=== PATIENT | male | born 1950 | race Caucasian/White ===

== ENCOUNTER 2022-05-31 23:42 | Emergency (ER) | payer OTHER ==
[~2022-05-31] VITALS: Ht 188 cm; Wt 88.9 kg
[2022-06-01] MEDS ORDERED: CETI10TA6 PO (02:32)
[2022-06-01] MEDS ORDERED: FLUT9.9S BOTHNSTRLS (02:32)
[2022-06-01] MEDS ORDERED: CLIN-194 PO (02:32)
[2022-06-01] MEDS ORDERED: ACET-2708 PO (02:32)
[2022-06-01 02:55] VITALS: BP 128/78
== END 2022-06-01 02:57 | disposition home or self-care (01) ==
LOC: ER 06-01
DX: J01.90 Acute sinusitis, unspecified (principal); K02.9 Dental caries, unspecified; I10 Essential (primary) hypertension; E11.9 Type 2 diabetes mellitus without complications; Z88.0 Allergy status to penicillin
CPT/HCPCS: 99283